=== PATIENT | female | born 1975 | race Caucasian/White ===

== ENCOUNTER → 2017-04-17 | Outpatient (CLI) | payer MEDICARE, OTHER ==
--- NOTE | 2017-04-21 08:24 | MM ---
Reason for exam: screening (asymptomatic). Last mammogram was performed 2 years and 10 months ago. History: Saline implants in both breasts, 2004. Took hormonal contraceptives for 15 years. Physical Findings: A clinical breast exam by your physician is recommended on an annual basis and results should be correlated with mammographic findings. MG Screening Mammo Implant/CAD Bilateral CC, MLO, and ID view(s) were taken. Prior study comparison: June 03, 2014, bilateral MG diagnostic mammo w CAD [facility]. The breast tissue is heterogeneously dense. This may lower the sensitivity of mammography. Bilateral breast implants. No significant changes when compared with prior studies. ASSESSMENT: Benign, BI-RAD 2 RECOMMENDATION: Follow-up diagnostic mammogram of both breasts in 1 year.
== END | disposition home or self-care (01) ==
LOC: RADMAMWWP 12:33
PROVIDERS: ATTEND Internal Medicine
DX: Z12.31 Encounter for screening mammogram for malignant neoplasm of breast (principal)

== ENCOUNTER → 2017-08-21 | Outpatient (CLI) | payer MEDICARE, OTHER ==
--- NOTE | 2017-08-21 10:17 | MR ---
EXAMINATION TYPE: MR shoulder LT wo con DATE OF EXAM: 08/21/2017 COMPARISON: NONE HISTORY: Pain in left shoulder TECHNIQUE: Multiplanar, multisequence imaging of the left shoulder is performed without contrast. FINDINGS: Rotator Cuff: Some increased signal is noted within the rotator cuff tendon possibly due to tendinosi s, the anterior insertion there is a focal area of increased signal which could represent a partial f ull-thickness thickness tear, undersurface tear Acromioclavicular Joint: Hypertrophic changes are present causing mass effect on the musculotendinous junction of supraspinatus Glenohumeral Joint: Intact Labrum: The labrum appears grossly intact given limitation of non-arthrogram study. Biceps Tendon: The long head of biceps is in normal location within bicipital groove, some fluid sign al courses along the course of the tendon. Bone marrow signal: No focal abnormal marrow signal is appreciated. Other: Fluid signal present in the subacromial subdeltoid bursa, distal acromial spur suspected, dist al acromion is downturned slightly. IMPRESSION: Suspect small partial tear of the rotator cuff tendon, correlate for impingement, there is likely ten dinosis
== END | disposition home or self-care (01) ==
LOC: RADMRIMAIN 07:54
PROVIDERS: ATTEND Orthopaedic Surgery
DX: M25.512 Pain in left shoulder (principal)

== ENCOUNTER → 2017-08-26 | Outpatient (CLI) | payer MEDICARE, OTHER ==
[2017-08-26 10:27] LABS: Basophils # (A) 0.1 k/uL (0-0.2); Basophils % (A) 1 %; Eosinophils % (A) 0 %; HCT 41.3 % (34.0-46.0); Lymphocytes # (A) 1.4 k/uL (1.0-4.8); Lymphocytes % (A) 13 %; MCH 29.4 pg (25.0-35.0); MCHC 31.4 g/dL (31.0-37.0); MCV 93.8 fL (80.0-100.0); Mean Platelet Volume 7.5; Monocytes # (A) 0.4 k/uL (0-1.0); Monocytes % (A) 4 %; Neutrophils # (A) 9.2 k/uL (1.3-7.7); Neutrophils % (A) 82 %; Platelet Count 237 k/uL (150-450); RBC 4.41 m/uL (3.80-5.40); RDW 12.6 % (11.5-15.5); WBC 11.2 k/uL (3.8-10.6)
[2017-08-26 10:49] LABS: Potassium 4.3 mmol/L (3.5-5.1)
== END | disposition home or self-care (01) ==
LOC: LABPAT 09:12
PROVIDERS: ATTEND Orthopaedic Surgery
DX: Z01.812 Encounter for preprocedural laboratory examination (principal); M75.42 Impingement syndrome of left shoulder
CPT/HCPCS: 36415; 80051; 85025; 99214

== ENCOUNTER 2017-09-04 12:20 | Day surgery (SDC) | payer MEDICARE, OTHER ==
[2017-09-02 11:33] VITALS: BMI 21.2
--- NOTE | 2017-09-03 16:43 | HP ---
HISTORY AND PHYSICAL REASON FOR ADMISSION: Surgery is 09/04/17. HISTORY OF PRESENT ILLNESS: Raquel Darling is a 42-year-old patient seen with progressive left shoulder pain. Treatment options were discussed. She elected proceed left shoulder arthroscopy. Consent was obtained. PAST MEDICAL HISTORY: Chronic low back pain, depression, gastroesophageal reflux disease. PAST SURGICAL HISTORY: Breast biopsy, tubal ligation, hysterectomy. DAILY MEDICATIONS ARE: Effexor, Mobic, morphine, prednisone, Prilosec, Topamax, Xanax. ALLERGIES: PENICILLIN. SOCIAL HISTORY: Patient denies current tobacco use. PHYSICAL EXAMINATION: Evaluation of the left shoulder flexion is 70 degrees, abduction is 50 degrees. External rotation is 40 degrees. Tenderness along the anterolateral acromion rotator cuff insertion. Impingement sign positive at 60 degrees. Drop-arm sign is positive. Distal neurovascular exam is intact. RADIOGRAPHS: Left shoulder radiographs revealed a lateral downsloping anterior acromion. Left shoulder MRI revealed partial rotator cuff tear and impingement. IMPRESSION: 1. Left shoulder impingement with partial rotator cuff tendon tear. 2. Chronic low back pain. 3. Gastroesophageal reflux disease. PLAN: Left shoulder arthroscopy, subacromial decompression, possible arthroscopic rotator cuff repair and debridement. Surgery is scheduled for 09/04/17. MMODL / IJN: [id number] /
[~2017-09-04 12:20] MED LIST: DEXAMETHASONE SOD PHOSPHATE 10 MG/ML 1 ML VIAL IV ONE; LACTATED RINGERS 1,000 ML IV SCH; LIDOCAINE 1% 20 ML VIAL (10MG/ML) FOR IV START INTRADERMA PRN; MIDAZOLAM 2 MG/2 ML VIAL IV PRN; MORPHINE SULFATE 4 MG/ML SYRINGE IV PRN; ONDANSETRON 4 MG/2 ML VIAL IVP ONE; SCOPOLAMINE 1.5MG/72HR PATCH TRANSDERM ONE; ceFAZolin 1,000 MG in DEXTROSE/WATER 1 50ML.BAG IV ONE
[2017-09-04] MEDS ORDERED: LIDOCAINE 2%-EPI 1:100,000 20 ML VIAL ONE (14:36)
[2017-09-04] MEDS ORDERED: fentaNYL (PF) 50 MCG/ML 2 ML AMP ONE (14:36)
[2017-09-04] MEDS ORDERED: MIDAZOLAM 2 MG/2 ML VIAL ONE (14:36)
[2017-09-04] MEDS ORDERED: ROPIVACAINE 5 MG/ML 30 ML VIAL ONE (14:36)
[2017-09-04] MEDS ORDERED: PROPOFOL 10 MG/ML 20 ML VIAL IV ONE (14:36)
[2017-09-04] MEDS ORDERED: LIDOCAINE 1% INJ 10MG/ML (20 ML MDV) ONE (14:36)
[2017-09-04] MEDS ORDERED: SUCCINYLCHOLINE CHLORIDE 100 MG/5 ML SYR IV ONE (14:36)
--- NOTE | 2017-09-04 15:51 | P.OP ---
Date of Procedure: 09/04/17 Preoperative Diagnosis: Left shoulder impingement Postoperative Diagnosis: 1. Left shoulder arthroscopic rotator cuff repair 2. Left shoulder arthroscopic subacromial decompression 3. Left shoulder arthroscopic debridement labral tear Procedure(s) Performed: 1. Left shoulder arthroscopic rotator cuff repair 2. Left shoulder arthroscopic subacromial decompression 3. Left shoulder arthroscopic debridement labral tear Implants: 1-valeris 5.5 peek anchor Anesthesia: GETA, regional (Interscalene block) Surgeon: Ramesh Blunt Relations Liaison #1: Edis Bernard Estimated Blood Loss (ml): 9 Pathology: none sent Condition: stable Disposition: PACU Indications for Procedure: 42-year-old patient seen with progressive left shoulder pain. After having treatment options discussed, she elected to proceed with arthroscopy. Operative Findings: See description of procedure Description of Procedure: Patient underwent a shoulder block by department of anesthesia. The patient was then taken to the operative suite. The patient underwent a general anesthetic by the department of anesthesia. The patient was placed into a lateral position and secured. There was appropriate padding of the bony prominence. Left shoulder was then prepped and draped in normal sterile orthopedic fashion. We placed the extremity in 10 pounds of longitudinal traction. A posterior incision was now made for a posterior working portal site. The trocar and cannula were inserted into the glenohumeral joint. Arthroscopy was initiated. Spinal needle was now inserted anteriorly, to ascertain the anterior working portal site. An incision was now made in that area, a trocar was inserted followed by a probe. There was partial tearing along the superior labrum present. There was some hyperemia long head biceps tendon but no significant tearing present. There was mild chondromalacia of the superior aspect the humeral head but no osteochondral tears. No loose bodies. I debrided the superficial labral tear down to stable tissue. The residual labrum was stable. Utilizing the posterior working portal site, the trocar and cannula were inserted into the subacromial space. Arthroscopy initiated. I made an incision 2 fingerbreadths lateral to the acromion. I introduced my trocar followed by my ArthroCare ablator. I now began ablating thick subacromial bursal tissue, which exposed the undersurface of the anterior acromion. This was diminished subacromial space. There was a very prominent anterior acromion. A motorized bur was introduced and a subacromial decompression was performed. I also excised some osteophytes off the inferior aspect of the distal clavicle. The AC joint was visualized and noted to be moderately arthritic, I did not think enough toward a Pravin procedure. I now turned my attention to the distal supraspinatus were noted some partial tearing. Once I debrided that down we did have a full thickness perforation. I debrided those margins on a stable tissue. We had approximately 1.5 cm tear freely mobile over the footprint. I abraded the footprint with a motorized bur. I passed 2 everted mattress sutures through good bites of rotator cuff tendon. I repaired the tear with one single anchor bringing the tendon over the footprint and compressing it nicely. Residual suture limbs were clipped. We had a good stable repair. I injected 1 mL of UCT intra-articular. Instruments now removed from the portal sites. All portal sites were approximated with nylon suture. Sterile dressings were applied followed by a shoulder immobilizer. Fred INMAN assisted with the procedure. The patient was awakened, transferred to a bed, and taken to recovery in stable condition.
[2017-09-04] MEDS ORDERED: MEPERIDINE 50 MG/ML SYRINGE IVP ONE ×2 (16:00→16:14)
[2017-09-04 16:07] VITALS: TEMP 98
[2017-09-04] MEDS ORDERED: fentaNYL (PF) 50 MCG/ML 2 ML AMP IVP ONE (16:50)
[2017-09-04] MEDS ORDERED: LACTATED RINGERS 1,000 ML IV ONE (16:54)
[2017-09-04 18:25] VITALS: BP 106/70; PULSE 89; RESP 20
--- NOTE | 2017-09-04 19:48 | P.ONQ ---
Anesthesiology Proc Note - PNB - Peripheral Nerve Block Performed Left Interscalene Single Time Out Performed: Yes Procedure Start Time: 14:00 Procedure Stop Time: 14:11 Indication: Acute Post-Operative Pain, Requested by physician Sedation Type: Sedate with meaningful contact maintained Preparation: Sterile Prep Position: Supine Needle Size: 50mm (2") Needle Gauge: 21 Technique: Ultrasound Injectate: 0.5% Ropivacaine (see comment for volume) (ropi .5% 30cc) Blood Aspirated: No Pain Paresthesia on Injection Noted: No Resistance on Injection: Normal Events: Uneventful and Well Tolerated
== END 2017-09-04 18:29 | disposition home or self-care (01) ==
LOC: OR 12:20
PROVIDERS: ATTEND Orthopaedic Surgery
DX: M75.102 Unspecified rotator cuff tear or rupture of left shoulder, not specified as traumatic (principal); G89.29 Other chronic pain; M75.42 Impingement syndrome of left shoulder; K21.9 Gastro-esophageal reflux disease without esophagitis; M54.5 Low back pain; S43.492A Other sprain of left shoulder joint, initial encounter; M25.712 Osteophyte, left shoulder; M19.012 Primary osteoarthritis, left shoulder; M94.212 Chondromalacia, left shoulder; Z87.891 Personal history of nicotine dependence; F32.9 Major depressive disorder, single episode, unspecified; Z88.0 Allergy status to penicillin; Z79.52 Long term (current) use of systemic steroids; Z79.1 Long term (current) use of non-steroidal anti-inflammatories (NSAID); Z79.891 Long term (current) use of opiate analgesic; Z90.710 Acquired absence of both cervix and uterus; Z79.899 Other long term (current) drug therapy
CPT/HCPCS: 64415; 29827; 29826; 29822; C1713; C1765; J2250; J1100; J2175; J2405; J2001; J3010; J0690; J2795; J0330; J2704

== ENCOUNTER → 2017-09-26 | Outpatient (CLI) | payer MEDICARE, OTHER ==
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
== END | disposition home or self-care (01) ==
LOC: RADMRIMAIN 15:30
PROVIDERS: ATTEND Psychiatry & Neurology Neurology
DX: G93.89 Other specified disorders of brain (principal); E23.6 Other disorders of pituitary gland
CPT/HCPCS: 70553; A9581